=== PATIENT | male | born 1975 | race Caucasian/White ===

== ENCOUNTER 2021-11-16 18:38 | Inpatient (IN) | payer MEDICAID ==
[2021-11-16] MEDS ORDERED: Sodium Chloride 0.9% 10 ML Syringe FLUSH PRN (18:39)
[2021-11-16] MEDS ORDERED: Labetalol 20 MG/4 ML Syringe ONE ×2 (18:51→19:00)
[2021-11-16] MEDS ORDERED: Labetalol 20 MG/4 ML Syringe IVPUSH ONE (18:56)
[2021-11-16] MEDS ORDERED: Nitroglycerin 0.4 MG Tab.SL SL ONE (18:58)
[2021-11-16] MEDS ORDERED: Nitroglycerin 0.4 MG Tab.SL ONE (18:59)
[2021-11-16] MEDS ORDERED: Labetalol 100 MG in Sodium Chloride 0.9% 80 ML IV SCH (19:00)
[2021-11-16] MEDS ORDERED: Sodium Chloride 0.9% 100 ML ONE (19:01)
[2021-11-16] MEDS ORDERED: Sodium Chloride 0.9% 10 ML Syringe FLUSH ONE (19:11)
[2021-11-16] MEDS ORDERED: Iopamidol 612 MG/ML 100 ML Bottle IV SCH (19:15)
[2021-11-16] MEDS ORDERED: Sodium Chloride 0.9% 50 ML IV SCH (19:15)
[2021-11-16] MEDS ORDERED: Pantoprazole 40 MG Tab.CR PO SCH (20:15)
[2021-11-16] MEDS ORDERED: Ondansetron 4 MG/2 ML SDV IVPUSH ONE (20:45)
[2021-11-16] MEDS ORDERED: LORazepam 2 MG/ML SDV IVPUSH ONE (20:47)
[2021-11-16] MEDS ORDERED: Ondansetron 4 MG/2 ML SDV ONE (20:47)
[2021-11-16] MEDS: Labetalol 100 MG Tab PO SCH (20:58)
[2021-11-16 21:02] LABS: CORONAVIRUS COVID-19 NAA NEGATIVE (NEGATIVE)
[2021-11-16] MEDS ORDERED: Sodium Chloride 0.9% 1,000 ML IV SCH (22:27)
[2021-11-16] MEDS ORDERED: Albuterol 0.083% 2.5 MG/3 ML Neb Soln NEB PRN (22:27)
[2021-11-16] MEDS ORDERED: Nitroglycerin 0.4 MG Tab.SL SL PRN (22:27)
[2021-11-16] MEDS ORDERED: Bisacodyl 5 MG Tab PO PRN (22:27)
[2021-11-16] MEDS ORDERED: Albuterol/Ipratropium 3.0-0.5 MG/3 ML Neb Soln NEB PRN (22:27)
[2021-11-16] MEDS ORDERED: LORazepam 2 MG/ML SDV IV PRN (22:27)
[2021-11-16] MEDS ORDERED: Ondansetron 4 MG Tab.DIS PO PRN (22:27)
[2021-11-16] MEDS ORDERED: Enoxaparin 40 MG/0.4 ML Syringe SUBCUT SCH (22:27)
[2021-11-16] MEDS ORDERED: Docusate Sodium 100 MG Cap PO PRN (22:27)
[2021-11-16] MEDS ORDERED: Acetaminophen 325 MG Tab PO PRN (22:27)
[2021-11-16] MEDS ORDERED: Morphine 2 MG/ML SYRINGE IVPUSH PRN (22:27)
[2021-11-16] MEDS ORDERED: oxyCODONE 5 MG Tab PO PRN (22:27)
[2021-11-16] MEDS: Spironolactone 25 MG Tab PO SCH (22:44)
[2021-11-16] MEDS: Pantoprazole 40 MG Vial IVPUSH SCH (22:44)
[2021-11-16] MEDS: hydrALAZINE 10 MG Tab PO SCH (22:45)
[2021-11-17] MEDS: hydrALAZINE 10 MG Tab PO SCH (04:16)
[2021-11-17] MEDS: Labetalol 100 MG Tab PO SCH (08:20)
[2021-11-17] MEDS: Spironolactone 25 MG Tab PO SCH (08:21)
[2021-11-17] MEDS: Pantoprazole 40 MG Vial IVPUSH SCH (08:23)
== END 2021-11-17 12:34 | disposition home or self-care (01) | DRG 305 ==
LOC: JP.ED 18:38 → JP.MS 22:00
PROVIDERS: ADMIT Internal Medicine; ATTEND Internal Medicine
DX: I16.0 Hypertensive urgency (principal); N18.31 Chronic kidney disease, stage 3a; I12.9 Hypertensive chronic kidney disease with stage 1 through stage 4 chronic kidney disease, or unspecified chronic kidney disease; K21.9 Gastro-esophageal reflux disease without esophagitis; E66.9 Obesity, unspecified; F41.8 Other specified anxiety disorders; Z20.822 Contact with and (suspected) exposure to COVID-19; Z79.899 Other long term (current) drug therapy; Z87.01 Personal history of pneumonia (recurrent); Z68.34 Body mass index [BMI] 34.0-34.9, adult
CPT/HCPCS: 0241U; 36415; 71260; 74177; 80048; 80053; 84484; 85025; 85379; 86140; 93005; A9270-GY; C9113; J1650; J2060; J2405; J3490; J7030; Q9967